=== PATIENT | male | born 1930 | race Caucasian/White ===

== ENCOUNTER 2017-07-09 12:33 | Outpatient (CLI) | payer MEDICARE ==
--- NOTE | 2017-07-09 15:09 | CT ---
CT LUMBAR SPINE WITHOUT CONTRAST: Date: 07/09/17 COMPARISON: 10/14/15. TECHNIQUE: CT lumbar spine is performed without intravenous or intrathecal contrast administration. Reformatted images are submitted for interpretation. FINDINGS: There is mild bone demineralization. Lumbar spine vertebral body height is maintained. No fracture. N o spondylolisthesis or spondylolysis. Visualized retroperitoneal structures are unremarkable. Stent in the left renal artery is noted. Athe rosclerosis of aorta. Symmetric attenuation of psoas muscles. Lumbar spine vertebral body height is maintained. No fracture. Limited evaluation of the contents of the central spinal canal and neural foramina due to technique. T11-T12 and T12-L1: No high grade central canal stenosis or high grade foraminal narrowing. L1-L2: Mild loss of disc space height. Mild central canal stenosis. Neural foramina are patent. L2-L3: Mild loss of disc space height. Generalized disc bulge, ligamentum flavum thickening, and facet hyper trophy result in mild central canal stenosis. Mild to moderate bilateral foraminal narrowing. L3-L4: Mild loss of disc space height. Generalized disc bulge, ligamentum flavum thickening, and facet hyper trophy result in mild central canal stenosis. Moderate right and severe left foraminal narrowing pred ominantly due to posterior element hypertrophy and disc material. L4-L5: Moderate loss of disc space height. There is a left hemilaminectomy defect. There is a generalized di sc bulge. Disc material encroaches upon the left subarticular zone and presumed to cause mass effect and obscuration of traversing left L5 nerve root. Right subarticular zone is unremarkable. Overall, t here is mild stenosis of the thecal sac. Moderate to severe bilateral foraminal narrowing. L5-S1: There is mild loss of disc space height. Generalized disc bulge without significant central canal cayden nosis. Mild narrowing of the left subarticular zone secondary to disc material. Presumed partial obsc uration of traversing left S1 nerve root. Moderate bilateral neural foraminal narrowing. Stable sclerosis involving the posterior left iliac wing. IMPRESSION: 1. 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 2. Abnormal soft tissue density in the left subarticular zone at L4-L5 and L5-S1. Findings are simil ar to post myelogram CT from 10/14/15. 3. Significant neural foraminal narrowing throughout the lumbar spine as detailed above. POS: [facility]
== END 2017-07-09 12:34 | disposition home or self-care (01) ==
LOC: SCSCT 12:33
PROVIDERS: ATTEND Specialist
DX: M47.26 Other spondylosis with radiculopathy, lumbar region (principal); M99.83 Other biomechanical lesions of lumbar region; R93.8 Abnormal findings on diagnostic imaging of other specified body structures
CPT/HCPCS: 72131

== ENCOUNTER 2019-02-26 10:54 | Outpatient (CLI) | payer MEDICARE ==
--- NOTE | 2019-02-26 11:51 | RAD ---
Lumbar spine 3 views: HISTORY: Lumbar stenosis. FINDINGS: Multilevel degenerative changes are present. There is minimal retrolisthesis of L3 over L4 and and mi nimal anterolisthesis of L4 over L5 vertebral bodies. No significant change in alignment is noted on flexion or extension. There is mild anterior wedging of the superior endplate of L1 vertebral body . Vascular calcifications are present.
== END 2019-02-26 10:55 | disposition home or self-care (01) ==
LOC: RAD 10:54
PROVIDERS: ATTEND Nurse Practitioner Family
DX: M48.062 Spinal stenosis, lumbar region with neurogenic claudication (principal)
CPT/HCPCS: 72100